=== PATIENT | female | born 1960 | race Caucasian/White ===

== ENCOUNTER → 2016-09-02 | Outpatient (CLI) | payer OTHER ==
[2016-02-05 22:05] VITALS: BP 118/68
[~2016-09-02] MED LIST: ACET325T9 PO; ALBU18HF IH; ALBU8.5H3 INH; ARIP10TA13 PO; ASPI-588 PO; ATOR20TA58 PO; BENZ100C; BENZ100C2 PO; BREO ELLIPTA INH; CARB15DR3 EACHEYE; CITA20TA9 PO; CITA40TA5; CITA40TA5 PO; CLON1TAB23 PO; CLON1TAB3 PO; CYCL10TA2 PO; DICL100G7 TP; DIPH25CA3 PO; DIPH25CA58 PO; DOCU-27 PO; DULO60CA6; DULO60CA6 PO; FAMO20TA5 PO; FLUT16SP NS; FLUT1DIS5; FLUT1DIS5 IH; FURO40TA4 PO; GABA-587; GABA-587 PO; GUAI600T38 PO; HYDR-209; IPRA4AER IH; IPRA4AER NEB; LACT10SO PO; MELA3TAB; MELA3TAB12 PO; MELO-150 PO; MELO7.5T5 PO; METF-93; METF500T4 PO; METH-37 PO; METH500T7 PO; METO25TA4 PO; METO25TA9 PO; METO50TA2 PO; MOME0.5P MC; MONT10TA6 PO; MORP30TA83 PO; MULT-246 PO; NAPR500T PO; NAPR500T3; NITR1PAT26 TD; OLOP5DRO EACHEYE; OMEG500C PO; OMEP20CA9 PO; PANT40GR PO; PANT40TA3 PO; POLY17PO5 PO; POTA10CA PO; POTA10TA; POTA20TA4 PO; PRED-220 PO; PROC10TA57 PO; PROM25TA10 PO; RANI300T PO; RANO500T2 PO; ROFL500T; ROFL500T PO; SUCR1TAB29 PO; TIOT18CA IH; TIOT18CA INH; TRAM50TA PO; TRAZ150T55 PO; UNABLE MC; ZOLP10TA4 PO
--- NOTE | 2016-09-02 09:51 | RAD ---
Chest, 2 views, 09/02/2016: History: Productive cough, previous smoker Comparison is made to a study from 08/17/2014. The heart size is normal. There are mild scattered parenchymal scars. There is mild linear atelectasis or scarring in the lingula on the left. No pulmonary consolidation is seen. There is flattening of the hemidiaphragms compatible with hyperexpansion due to COPD. There is no evidence of pleural fluid. IMPRESSION: 1. COPD with mild parenchymal scarring. 2. Mild linear atelectasis and/or scarring in the lingula.
== END | disposition home or self-care (01) ==
LOC: DXRADRC 09:28
PROVIDERS: ATTEND Physician Assistant
DX: J44.9 Chronic obstructive pulmonary disease, unspecified (principal); J98.11 Atelectasis; L90.5 Scar conditions and fibrosis of skin; Z87.891 Personal history of nicotine dependence
CPT/HCPCS: 71020

== ENCOUNTER → 2017-06-04 | Outpatient (CLI) | payer OTHER ==
[2016-02-05 22:05] VITALS: BP 118/68
[~2017-06-04] MED LIST changes: -ALBU8.5H3 INH; +ALBU8.5H8 INH; -ARIP10TA13 PO; +ARIP10TA9 PO; +BENZ-8 PO; -BENZ100C2 PO; +CYCL-331 PO; -CYCL10TA2 PO; +DICL100G18 TP; -DICL100G7 TP; +DOCU-109 PO; -DOCU-27 PO; -FLUT16SP NS; +FLUT16SP21 NS; -GUAI600T38 PO; +GUAI600T47 PO; -MELA3TAB; -MELA3TAB12 PO; +MELA3TAB2; +MELA3TAB43 PO; -MELO-150 PO; +MELO15TA23 PO; +METF-153; -METF-93; +METO-239 PO; -METO25TA9 PO; -METO50TA2 PO; +METO50TA6 PO; +NAPR-683 PO; -NAPR500T PO; -NAPR500T3; +NAPR500T4; -ROFL500T; -ROFL500T PO; +ROFL500T7; +ROFL500T7 PO; -SUCR1TAB29 PO; +SUCR1TAB35 PO; +TRAZ150T49 PO; -TRAZ150T55 PO
--- NOTE | 2017-06-04 11:37 | RAD ---
Chest, 2 views, 06/04/2017: History: Dyspnea Comparison is made to a study from 09/02/2016. The heart size is normal. There are mild scattered parenchymal scars. No definite acute infiltrate is seen. There is no evidence of pleural fluid. IMPRESSION: No acute cardiopulmonary abnormality is detected.
== END | disposition home or self-care (01) ==
LOC: PMG 10:57
PROVIDERS: ATTEND Physician Assistant
DX: J44.9 Chronic obstructive pulmonary disease, unspecified (principal); R06.00 Dyspnea, unspecified; I10 Essential (primary) hypertension; F17.210 Nicotine dependence, cigarettes, uncomplicated
CPT/HCPCS: 71020

== ENCOUNTER → 2017-11-12 | Outpatient (CLI) | payer OTHER ==
[2016-02-05 22:05] VITALS: BP 118/68
[~2017-11-12] MED LIST changes: -METF500T4 PO; +METF500T5 PO; +NAPR-514; -NAPR500T4
--- NOTE | 2017-11-12 17:59 | RAD ---
Chest, 2 views, 11/12/2017: HISTORY: Shortness of breath Comparison is made to a study from 06/04/2017. The heart size and pulmonary vascularity are within normal limits. There is minimal linear atelectasis in the left lung laterally. No pulmonary consolidation is seen. There is no evidence of pleural fluid. The lungs are somewhat hyperexpanded. Mild spurring is present in the spine. IMPRESSION: 1. Minimal linear atelectasis in the left lung. 2. Hyperexpansion compatible with COPD. Electronically signed by: Mario Alberto Carr MD (11/12/2017 5:55 PM) [facility]
== END | disposition home or self-care (01) ==
LOC: PMG 12:03
PROVIDERS: ATTEND Physician Assistant
DX: J98.11 Atelectasis (principal); I10 Essential (primary) hypertension; F17.210 Nicotine dependence, cigarettes, uncomplicated
CPT/HCPCS: 71046

== ENCOUNTER → 2017-12-24 | Outpatient (CLI) | payer OTHER ==
[2016-02-05 22:05] VITALS: BP 118/68
[~2017-12-24] MED LIST changes: -CLON1TAB3 PO; +CLON1TAB4 PO
--- NOTE | 2017-12-24 16:54 | RAD ---
INDICATION: Dyspnea, short of air. TECHNIQUE: Two-view chest radiograph was obtained. Comparison is from November 12, 2017. FINDINGS: There is minimal linear atelectasis, stable. There is no airspace disease. The heart is not enlarged and there is no heart failure. There is minimal atheromatous disease in the thoracic aorta. There is no pleural effusion. There are minimal degenerative changes in the spine. Lungs remain mildly hyperinflated. IMPRESSION: 1. Stable examination. Findings suggesting mild emphysema with areas of stable presumed linear scarring or atelectasis. Electronically signed by: Heath Joseph MD (12/24/2017 4:51 PM) [facility]
== END | disposition home or self-care (01) ==
LOC: RAD 16:17
PROVIDERS: ATTEND Physician Assistant
DX: J98.11 Atelectasis (principal); I70.0 Atherosclerosis of aorta; I11.0 Hypertensive heart disease with heart failure; I50.9 Heart failure, unspecified; E78.5 Hyperlipidemia, unspecified; J44.9 Chronic obstructive pulmonary disease, unspecified; K21.9 Gastro-esophageal reflux disease without esophagitis
CPT/HCPCS: 71046